=== PATIENT | male | born 1945 | race Caucasian/White ===

== ENCOUNTER 2017-11-20 13:37 | Emergency (ER) | payer MEDICARE ==
[2017-11-20 14:01] LABS: BASO % 0.7 % (0-6); EOS % 4.3 % (0-6); GRAN % 61.5 % (47-80); HEMATOCRIT 42.5 % (42.0-52.0); HEMOGLOBIN 14.4 gm/dl (14.0-18.0); LYMPH % 22.4 % (16-45); MEAN CELL VOLUME 97.5 fl (81-97); MEAN CORPUSCULAR HGB CONC 33.9 g/dl (32-36); MONO % 11.1 % (0-9); PLATELET COUNT 212 K/uL (130-400); RED BLOOD COUNT 4.36 M/uL (4.40-5.70); WHITE BLOOD COUNT W/O DIFF 5.9 K/uL (4.2-12.2)
[2017-11-20 14:05] LABS: BLOOD UREA NITROGEN 15 mg/dL (8-23)
[2017-11-20 14:06] LABS: CREATININE 0.9 mg/dL (0.7-1.2); EST GLOMERULAR FILTRATION RATE > 60 mL/min; TOTAL PROTEIN 7.2 g/dL (6.6-8.7)
[2017-11-20 14:08] LABS: GLUCOSE,RANDOM 110 mg/dL (74-109)
[2017-11-20 14:11] LABS: ALB/GLOB RATIO 2.1 (1.1-1.8); ALBUMIN 4.9 g/dL (4.0-5.0); ALKALINE PHOSPHATASE 52 U/L (40-129); ALT/SGPT 79 U/L (<41); AST/SGOT 99 U/L (10.0-50.0)
[2017-11-20 14:12] LABS: URINE APPEARANCE CLEAR; URINE BILIRUBIN NEGATIVE (NEGATIVE); URINE BLOOD NEGATIVE (NEGATIVE); URINE COLOR YELLOW; URINE GLUCOSE (UA) NEGATIVE (NEGATIVE); URINE KETONE NEGATIVE (NEGATIVE); URINE LEUKOCYTE ESTERASE NEGATIVE (NEGATIVE); URINE NITRITE NEGATIVE (NEGATIVE); URINE PROTEIN NEGATIVE (NEGATIVE); URINE UROBILINOGEN 0.2 E.U./dL (0.20 - 1.00)
--- NOTE | 2017-11-20 15:28 | Emergency Department Record ---
History of Present Illness - General Chief Complaint: Fall Injury Stated Complaint: FELL OF LADDER,RT SIDE RIB PAIN,AND HIT HEAD Time Seen by Provider: 11/20/17 13:49 Source: Patient, Family Mode of Arrival: Ambulatory Limitations: No limitations - History of Present Illness Initial Comments: pt fell off 3 step footstool onto cement, hitting his head and side. he had a loc. he c/o r rib pain. he is unsure how long he was unconcious. he has no numbness. he has a hx of a stroke MD Complaint: Fall Onset/Timin -: Minutes(s) Fall From: Other When Fall Occurred: Just prior to arrival Fall Witnessed: No Place Fall Occurred: Home Loss of Consciousness: Yes Prolonged Down Time?: Unclear Symptoms Prior to Fall: None Location: Head, Chest, Abdomen Severity: Moderate Quality: Aching Context: Tripped/slipped - [place] Coma Scale Eye Response: (4) Open spontaneously Motor Response: (6) Obeys commands Verbal Response: (5) Oriented [place] Total: 15 - Related Data Home Medications Medication Instructions Recorded Confirmed Last Taken Aspirin 81 mg PO DAILY 11/20/17 11/20/17 1 Day Ago ~11/19/17 Cetirizine HCl [Zyrtec] 10 mg PO DAILY 11/20/17 11/20/17 1 Day Ago ~11/19/17 Cholecalciferol (Vitamin D3) 1,000 unit PO DAILY 11/20/17 11/20/17 1 Day Ago [Vitamin D3] ~11/19/17 Citalopram Hydrobromide [Celexa] 20 mg PO DAILY 11/20/17 11/20/17 1 Day Ago ~11/19/17 Clopidogrel Bisulfate [Plavix] 75 mg PO DAILY 11/20/17 11/20/17 1 Day Ago ~11/19/17 Glucosam/MSM/Chond/Bosw/Hyalur 1 each PO BID 11/20/17 11/20/17 1 Day Ago [Tmjzqyeiyny-Wfxtrz-FWD Caplet] ~11/19/17 Hydrochlorothiazide [Hctz 12.5MG] 12.5 mg PO DAILY 11/20/17 11/20/17 1 Day Ago ~11/19/17 Lisinopril 2.5 mg PO BID 11/20/17 11/20/17 1 Day Ago ~11/19/17 Metformin HCl [Glucophage] 500 mg PO QPM 11/20/17 11/20/17 1 Day Ago ~11/19/17 Multivitamin [Multiple Vitamins] 1 each PO DAILY 11/20/17 11/20/17 1 Day Ago ~11/19/17 Niacin 500 mg PO QAM 11/20/17 11/20/17 1 Day Ago ~11/19/17 Repaglinide [Prandin] 5 mg PO ASDIR 11/20/17 11/20/17 1 Day Ago ~11/19/17 Simvastatin [Zocor] 20 mg PO DAILY 11/20/17 11/20/17 1 Day Ago ~11/19/17 Previous Rx's Medication Instructions Recorded Hydrocodone/Acetaminophen [[place] 1 each PO Q6HR #7 tablet 11/20/17 5-325 Tablet] Allergies Allergy/AdvReac Type Severity Reaction Status Date / Time ciprofloxacin [From Cipro] Allergy ITCHING Verified 11/20/17 13:53 Travel Screening - Travel/Exposure Within Last 30 Days Have you traveled within the last 30 days?: No - Travel/Exposure Within Last Year Have you traveled outside the [place] in the last year?: No - Additonal Travel Details Have you been exposed to anyone with a communicable illness?: No - Travel Symptoms Symptom Screening: None Review of Systems Reviewed: No additional complaints except as noted below Constitutional: Reports: As per HPI. Denies: Chills, Fever, Malaise, Night sweats, Weakness, Weight change Eyes: Reports: As per HPI. Denies: Eye discharge, Eye pain, Photophobia, Vision change ENT: Reports: As per HPI. Denies: Congestion, Dental pain, Ear pain, Epistaxis , Hearing loss, Throat pain Respiratory: Reports: As per HPI. Denies: Cough, Dyspnea, Hemoptysis, Stridor, Wheezes Cardiovascular: Reports: As per HPI. Denies: Arrhythmia, Chest pain, Dyspnea on exertion, Edema, Murmurs, Orthopnea, Palpitations, Paroxysmal nocturnal dyspnea, Rheumatic Fever, Syncope Endocrine: Reports: As per HPI. Denies: Fatigue, Heat or cold intolerance, Polydipsia, Polyuria Gastrointestinal: Reports: As per HPI. Denies: Abdominal pain, Constipation, Diarrhea, Hematemesis, Hematochezia, Melena, Nausea, Vomiting Genitourinary: Reports: As per HPI. Denies: Dysuria, Frequency, Hematuria, Incontinence, Retention, Testicular pain, Testicular mass, Urgency Musculoskeletal: Reports: As per HPI. Denies: Arthralgia, Back pain, Gout, Joint swelling, Myalgia, Neck pain Skin: Reports: As per HPI. Denies: Bruising, Change in color, Change in hair/ nails, Lesions, Pruritus, Rash Neurological: Reports: As per HPI. Denies: Abnormal gait, Confusion, Headache, Numbness, Paresthesias, Seizure, Tingling, Tremors, Vertigo, Weakness Psychiatric: Reports: As per HPI. Denies: Anxiety, Auditory hallucinations, Depression, Homicidal thoughts, Suicidal thoughts, Visual hallucinations Hematological/Lymphatic: Reports: As per HPI. Denies: Anemia, Blood Clots, Easy bleeding, Easy bruising, Swollen glands Past Medical History - SOCIAL HISTORY Smoking Status: Former smoker Alcohol Use: Occasional Drug Use: None - RESPIRATORY Hx Respiratory Disorders: Yes Hx Sleep Apnea: Yes Hx of CPAP: Yes - CARDIOVASCULAR Hx Hypertension: Yes - NEURO Hx CVA: Yes (2002) Comment:: speech issues - GI Hx GI Disorders: No - Hx Genitourinary Disorders: No - ENDOCRINE Hx Diabetes: Yes Hx Thyroid Disease: No - MUSCULOSKELETAL Hx Arthritis: Yes (hands) - PSYCH Hx Anxiety: Yes Hx Depression: Yes - HEMATOLOGY/ONCOLOGY Hx Bruising: Yes (Plavix) Hx Cancer: No Family Medical History Any Significant Family History?: Yes Physical Exam - General General Appearance: Alert, Oriented x3, Cooperative, Mild distress - Head Head exam: Normal inspection Head exam detail: General tenderness - Eye Eye exam: Normal appearance, PERRL, EOMI Pupils: Normal accommodation - ENT ENT exam: Normal exam, Mucous membranes moist, Normal external ear exam, Normal orophraynx Ear exam: Normal external inspection. negative: External canal tenderness Nasal Exam: Normal inspection. negative: Discharge, Sinus tenderness Mouth exam: Normal external inspection, Tongue normal Teeth exam: Normal inspection. negative: Dental caries Throat exam: Normal inspection. negative: Tonsillar erythema, Tonsillar exudate - Neck Neck exam: Normal inspection, Full ROM. negative: Tenderness - Respiratory Respiratory exam: Normal lung sounds bilaterally, Chest wall tenderness. negative: Respiratory distress - Cardiovascular Cardiovascular Exam: Regular rate, Normal rhythm, Normal heart sounds - GI/Abdominal GI/Abdominal exam: Soft, Normal bowel sounds, Tenderness - Rectal Rectal exam: Deferred - exam: Deferred - Extremities Extremities exam: Normal inspection, Full ROM, Normal capillary refill. negative: Tenderness - Back Back exam: Reports: Normal inspection, Full ROM. Denies: Muscle spasm, Rash noted, Tenderness - Neurological Neurological exam: Alert, CN II-XII intact, Normal gait, Oriented X3 - Psychiatric Psychiatric exam: Normal affect, Normal mood - Skin Skin exam: Dry, Intact, Normal color, Warm Course Vital Signs 11/20/17 11/20/17 13:44 15:13 Temperature 97.3 F L Pulse Rate 90 Pulse Rate [ 79 Pulse Ox Probe] Respiratory 20 18 Rate Blood Pressure 164/105 Blood Pressure 162/114 [Left Arm] Pulse Ox 99 96 Medical Decision Making - Lab Data Result diagrams: 11/20/17 13:50 11/20/17 13:50 Lab Results 11/20/17 11/20/17 11/20/17 Range/Units 13:50 13:50 14:09 WBC 5.9 (4.2-12.2) K/uL RBC 4.36 L (4.40-5.70) M/uL Hgb 14.4 (14.0-18.0) gm/dl Hct 42.5 (42.0-52.0) % MCV 97.5 H (81-97) fl MCH 33.0 (27-33) pg MCHC 33.9 (32-36) g/dl RDW 13.0 (11.5-14.5) % Plt Count 212 (130-400) K/uL MPV 9.0 (7.4-10.4) fl Gran % 61.5 (47-80) % Lymphocytes % 22.4 (16-45) % Monocytes % 11.1 H (0-9) % Eosinophils % 4.3 (0-6) % Basophils % 0.7 (0-6) % Sodium 140 (136-145) mmol/L Potassium 3.9 (3.4-4.5) mmol/L Chloride 100 (98-107) mmol/L Carbon Dioxide 28.0 (22-29) mmol/L Anion Gap 12.0 (7-16) BUN 15 (8-23) mg/dL Creatinine 0.9 (0.7-1.2) mg/dL Estimated GFR > 60 mL/min Random Glucose 110 H (74-109) mg/dL Calcium 9.6 (8.8-10.2) mg/dL Total Bilirubin 0.40 (0.2-1.0) mg/dL AST 99 H (10.0-50.0) U/L ALT 79 H (<41) U/L Alkaline Phosphatase 52 (40-129) U/L Total Protein 7.2 (6.6-8.7) g/dL Albumin 4.9 (4.0-5.0) g/dL Globulin 2.3 (1.4-4.8) gm/dL Albumin/Globulin Ratio 2.1 H (1.1-1.8) Urine Color Yellow Urine Appearance Clear Urine pH 5.5 (5.0-8.0) Ur Specific [place] 1.020 (1.002-1.030) Urine Protein Negative (NEGATIVE) Urine Glucose (UA) Negative (NEGATIVE) Urine Ketones Negative (NEGATIVE) Urine Blood Negative (NEGATIVE) Urine Nitrite Negative (NEGATIVE) Urine Bilirubin Negative (NEGATIVE) Urine Urobilinogen 0.2 (0.20 - 1.00) E.U./dL Ur Leukocyte Esterase Negative (NEGATIVE) Disposition Disposition: Discharge Clinical Impression: Lung nodule < 6cm on CT Ribs, multiple fractures Qualifiers: Encounter type: initial encounter Fracture type: closed Laterality: right Qualified Code(s): S22.41XA - Multiple fractures of ribs, right side, initial encounter for closed fracture Concussion Qualifiers: Encounter type: initial encounter Loss of consciousness presence/duration: with LOC of unspecified duration Qualified Code(s): S06.0X9A - Concussion with loss of consciousness of unspecified duration, initial encounter Disposition: Home, Self-Care Condition: (1) Good Instructions: Rib Fracture (ED), Concussion (ED), Pulmonary Nodules (ED) Additional Instructions: follow up with family doctor. return sooner if worse. rest. deep inspiration 5 times every hour. motrin with food for pain. have repeat lung ct in 3-6 months Prescriptions: Hydrocodone/Acetaminophen [[place] 5-325 Tablet] 1 each PO Q6HR #7 tablet Forms: Patient Portal Access Quality - Quality Measures Quality Measures: N/A - Blood Pressure Screening Does Patient Have Any of the Following: No Blood Pressure Classification: Hypertensive Reading Systolic Measurement: 164 Diastolic Measurement: 105 Screening for High Blood Pressure: < First Hypertensive BP, F/U Documented > [ [id number]] First Hypertensive Follow-up Interventions: Follow-up with rescreen GT 1 day and LT 4 weeks.
[2017-11-20] MEDS ORDERED: HYDROCODONE/APAP 5/325MG TABLET PO ONE (15:49)
--- NOTE | 2017-11-21 10:55 | CT SCAN REPORT ---
EXAM: EMERGENCY CT OF THE HEAD WITHOUT CONTRAST HISTORY: PATIENT FELL OFF A LADDER TODAY, TRAUMA ALERT. TECHNIQUE: Axial CT scan of the head was performed without IV contrast. Comparison: None. Encounter: Initial. FINDINGS: No definite acute intracranial hemorrhage identified. Moderate generalized atrophy. There is low attenuation in the left frontal parietal region. No appreciable associated mass effect and this is probably an old area of infarction on the left. Comparison with any prior head imaging exams would be useful in this regard to confirm, however, no definite acute infarct or intracranial mass lesion is seen today. Moderate membrane thickening left maxillary antrum and mild membrane thickening right maxillary antrum. Mild to moderate membrane thickening in the anterior ethmoid and inferior frontal sinuses as well. No depressed calvarial fracture evident. IMPRESSION: 1. NO DEFINITE ACUTE INTRACRANIAL HEMORRHAGE OR FOCAL MASS EFFECT EVIDENT. 2. GENERALIZED ATROPHY PROBABLY WITH AN OLD AREA OF INFARCTION IN THE LEFT FRONTAL PARIETAL REGION. 3. SOME MEMBRANE THICKENING IN SOME OF THE PARANASAL SINUSES DETAILED ABOVE. JOB NUMBER: [id number] [facility]
--- NOTE | 2017-11-21 12:59 | CT SCAN REPORT ---
EXAM: EMERGENCY CT OF THE CERVICAL SPINE HISTORY: PATIENT FELL OFF LADDER, TRAUMA ALERT. TECHNIQUE: Axial CT scan of the entire cervical spine was performed without IV contrast. Comparison: None. Encounter: Initial. FINDINGS: No apical pneumothorax is evident. No definite fracture of the cervical spine identified. No prevertebral soft tissue swelling evident. There is some loss of the normal cervical lordosis likely due to positioning or spasm. There is narrowing particularly the fourth through seventh cervical interspaces with associated hypertrophic spurring. Some ligamentous calcification posterior the C4 in particular. Multilevel facet joint arthropathy, with fusion of the left C3-C4 facet articulation as well as probably the C7-T1 facet articulation, and on the right also of the C7-T1 facet articulation. There is spinal stenosis most marked at the C5-C6 interspace, slightly less so at the C4-C5 interspace, and with multilevel foraminal stenosis as well. IMPRESSION: 1. NO DEFINITE FRACTURE OR PREVERTEBRAL SOFT TISSUE SWELLING SEEN IN THE CERVICAL SPINE. 2. LOSS OF LORDOSIS LIKELY DUE TO POSITIONING OR SPASM. 3. 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 JOB [facility]BER: [id number] [facility]
--- NOTE | 2017-11-21 13:17 | CT SCAN REPORT ---
EXAM: CHEST CT WITH CONTRAST HISTORY: PATIENT FELL OFF LADDER TODAY WITH PAIN PARTICULARLY IN THE RIGHT MID RIBS. TECHNIQUE: Axial CT scan of the chest was performed with IV contrast. Please see the medical record for IV contrast specifics. Post processing on an independent workstation was performed with 3D volume rendered as well as 2D multiplanar reformatted series obtained. Comparison: None. Encounter: Initial. FINDINGS: No pneumothorax evident. No acute infiltrate/pulmonary contusion identified. There is a small nodule in the left lower lobe measuring about 5.8 mm in diameter. This is not clearly calcified and could be inflammatory or neoplastic. If there are no prior chest CT's with which to compare, follow-up chest CT in 3-6 months time would be suggested for reassessment. There is probably an undisplaced fracture laterally in the right seventh rib. No other rib fracture identified. Some spurring in the thoracic spine. IMPRESSION: 1. THERE IS PROBABLY AN UNDISPLACED FRACTURE LATERALLY IN THE RIGHT SEVENTH RIB. 2. SMALL INDETERMINATE NODULE LEFT LOWER LOBE AND FOLLOW-UP DESCRIBED ABOVE SUGGESTED. JOB NUMBER: [id number] [facility]
--- NOTE | 2017-11-21 13:24 | CT SCAN REPORT ---
EXAM: EMERGENCY CT OF THE ABDOMEN AND PELVIS WITH CONTRAST HISTORY: PATIENT FELL OFF LADDER TODAY WITH PAIN, TRAUMA ALERT. TECHNIQUE: Axial CT scan of the abdomen and pelvis was performed following the intravenously contrast enhanced chest CT. Please see the medical record for contrast specifics. No oral contrast was utilized at the referring physician's request. Comparison: None. Encounter: Initial. FINDINGS: No calcified gallstones are seen within the gallbladder. No definite hepatic, splenic, adrenal, pancreatic, or renal mass identified. Small right inguinal hernia containing adipose tissue, but no bowel. Some prostate calcification is present. Additional surgical history is appendectomy and hernia repair. The appendix is not identified consistent with the surgical history. Limited evaluation of the bowel without oral contrast. Segments of the colon have a somewhat thick walled appearance. This is nonspecific and may just be due to incomplete distention. No free intraperitoneal air or free intraperitoneal fluid identified. Degenerative disk disease at the lumbosacral interspace. Possible undisplaced fracture laterally in the right seventh and ninth ribs. IMPRESSION: 1. POSTOP APPENDECTOMY. 2. THERE ARE PROBABLY UNDISPLACED FRACTURES LATERALLY IN THE RIGHT SEVENTH AND NINTH RIBS. 3. DEGENERATIVE CHANGE IN THE SPINE. 4. SOME PROSTATE CALCIFICATION. 5. SMALL RIGHT INGUINAL HERNIA CONTAINING ADIPOSE TISSUE, BUT NO BOWEL. 6. SOME NONSPECIFIC THICK WALLED APPEARANCE OF SEGMENTS OF THE COLON. [facility]: [id number] [facility]
== END 2017-11-20 16:24 | disposition home or self-care (01) ==
LOC: ER 13:37
DX: S06.0X9A Concussion with loss of consciousness of unspecified duration, initial encounter (principal); S00.81XA Abrasion of other part of head, initial encounter; S80.211A Abrasion, right knee, initial encounter; S22.41XA Multiple fractures of ribs, right side, initial encounter for closed fracture; R91.1 Solitary pulmonary nodule; I69.328 Other speech and language deficits following cerebral infarction; I10 Essential (primary) hypertension; E11.9 Type 2 diabetes mellitus without complications; Z79.84 Long term (current) use of oral hypoglycemic drugs; Z79.01 Long term (current) use of anticoagulants; Z87.891 Personal history of nicotine dependence; W11.XXXA Fall on and from ladder, initial encounter; Y92.009 Unspecified place in unspecified non-institutional (private) residence as the place of occurrence of the external cause
CPT/HCPCS: 99284 ×2; 85025; 80053; 81003; 72125; 71260; 70450; 74177; Q9967